=== PATIENT | male | born 1960 | race Caucasian/White ===

== ENCOUNTER 2023-12-15 11:41 | Emergency (ER) | payer OTHER, SELFPAY ==
[2023-12-15 11:55] VITALS: BP 117/63; PULSE 77; RESP 20; TEMP 36.2; O2SAT 97
--- NOTE | 2023-12-15 12:09 | ED.BACK ---
HPI - Back Pain/Injury General Chief Complaint: Back Pain/Injury Stated Complaint: Back Pain Source: patient Mode of arrival: ambulatory Limitations: no limitations History of Present Illness HPI Narrative: 63-year-old male presented for complaint of right mid back pain for about 3 weeks, states it has been worsening over the past few days. Endorses pain is 7/10 with deep breaths and certain movements. States the pain originally started after pulling machinery at work. Denies hematuria, dysuria, nausea, vomiting, abdominal pain, constipation, diarrhea, fevers or chills. Denies rash to the site. Has been taking ibuprofen. Denies pain radiating into the hips or legs, numbness, tingling, weakness of the lower extremities, or change in gait, saddle paresthesia or loss of bowel or bladder. Related Data Home Medications Medication Instructions Recorded Confirmed atorvastatin 40 mg tablet 40 mg PO DAILY 12/15/23 12/15/23 empagliflozin 25 mg tablet 25 mg PO DAILY 12/15/23 12/15/23 (Jardiance) ezetimibe 10 mg tablet 10 mg PO DAILY 12/15/23 12/15/23 glipizide 2.5 mg-metformin 500 mg 2 tablet PO BID 12/15/23 12/15/23 tablet lisinopril 20 1 tablet PO DAILY 12/15/23 12/15/23 mg-hydrochlorothiazide 12.5 mg tablet silodosin 8 mg capsule 8 mg PO DAILY 12/15/23 12/15/23 Allergies Allergy/AdvReac Type Severity Reaction Status Date / Time No Known Allergies Allergy Mild Verified 12/15/23 11:52 Review of Systems Review of Systems: CONSTITUTIONAL: Denies body aches, fever, chills EYES: Denies visual changes CARDIOVASCULAR: Denies chest pain, palpitations, or edema. RESPIRATORY: Denies cough or dyspnea. GASTROINTESTINAL: Denies abdominal pain, nausea, vomiting, or diarrhea. SKIN: Denies rash, itching, or wounds. MUSCULOSKELETAL: reports back pain NEUROLOGIC: Denies headache, numbness, tingling, or weakness. All systems reviewed & are unremarkable except as noted in HPI and below PMFSH Past Medical History Medical History (Updated 12/15/23 @ 12:30 by Yane Wick APRN) Diabetes Hypertension Comments At time of signature, I have reviewed and agree with nursing past medical, surgical, social and family history unless otherwise noted. Please see nursing chart for further information. There is no relevant family history pertinent to the presenting complaint Exam Narrative: GENERAL: Well-appearing, and in no acute distress. CHEST: Speaks in full sentences. No respiratory distress. HEART: Regular rate and rhythm. Normal and equal peripheral pulses. MUSC: Right flank is tender with palpation. No Vertebral point tenderness. BLEs with normal strength and sensation, normal range of motion No erythema, edema or ecchymosis, No open wounds, or obvious deformity; alignment normal, pulse palpable and equal bilaterally, skin warm, dry, pink. Capillary refill less than 3 seconds. Gait steady. SKIN: Warm, dry, no rash. NEURO: Alert and oriented x3. Course Course Emergency Course: Patient is aware of diagnosis, understands and agrees to treatment plan. Anticipatory guidance given. Patient agrees to follow-up as directed and is aware of reasons to seek care at the emergency department. Portions of this record may have been created with voice recognition software Level of Care: Express Care Visit Vital Signs Vital signs: Vital Signs Temperature 97.2 F L 12/15/23 11:55 Pulse Rate 77 12/15/23 11:55 Respiratory Rate 20 12/15/23 11:55 Blood Pressure 117/63 12/15/23 11:55 Pulse Oximetry 97 12/15/23 11:55 Oxygen Delivery Room Air 12/15/23 11:55 Temperature 97.2 F L 12/15/23 11:55 Pulse Rate 77 12/15/23 11:55 Respiratory Rate 20 12/15/23 11:55 Blood Pressure 117/63 12/15/23 11:55 Pulse Oximetry 97 12/15/23 11:55 Oxygen Delivery Room Air 12/15/23 11:55 Reviewed MDM - Back Pain/Injury MDM Narrative Medical decision making narrative: Discussed physical exam fi
== END 2023-12-15 12:26 | disposition home or self-care (01) ==
PROVIDERS: Emergency Provider Nurse Practitioner Family
DX: M54.9 Dorsalgia, unspecified (principal); E11.9 Type 2 diabetes mellitus without complications; I10 Essential (primary) hypertension
CPT/HCPCS: 99203; G0463